=== PATIENT | female | born 1980 | race African-American/Black ===

== ENCOUNTER 2018-09-08 23:01 | Emergency (ER) | payer MEDICAID ==
[~2018-09-08] VITALS: Ht 167.6 cm; Wt 64.0 kg
[2018-09-08 23:27] VITALS: BP 91/58
== END 2018-09-09 02:55 | disposition left against medical advice (07) ==
LOC: ER 23:01
DX: Z53.21 Procedure and treatment not carried out due to patient leaving prior to being seen by health care provider (principal)